=== PATIENT | female | born 1995 | race Hispanic/Latino ===

== ENCOUNTER 2025-09-04 09:21 | Inpatient (IN) | payer OTHER ==
[2025-09-04] MEDS ORDERED: hydrALAZINE 20 MG/ML VIAL SLOW IVP PRN ×2 (09:52→14:24)
[2025-09-04 09:53] VITALS: BMI 25.7
[2025-09-04] MEDS ORDERED: Acetaminophen 500 MG TAB PO PRN (14:24)
[2025-09-04] MEDS ORDERED: Lidocaine 1% (PF) 30 ML VIAL SC PRN (14:24)
[2025-09-04] MEDS ORDERED: Ondansetron PF 4 MG/2 ML Vial IVP PRN ×2 (14:24→20:08)
[2025-09-04] MEDS ORDERED: Tranexamic Acid 1,000 MG/10 ML VIAL IVP PRN (14:24)
[2025-09-04] MEDS ORDERED: Diphenoxylate HCl/Atropine Tablet PO PRN (14:24)
[2025-09-04] MEDS ORDERED: Carboprost 250 MCG/ML AMP IM PRN (14:24)
[2025-09-04] MEDS ORDERED: Methylergonovine 0.2 MG/ML VIAL IM PRN (14:24)
[2025-09-04] MEDS ORDERED: Oxytocin 30 units/NS 500 ML 500 ML IV SCH ×2 (14:30)
[2025-09-04 15:30] LABS: Hematocrit 39.3 % (34.9-44.5); Hemoglobin 13.4 g/dL (12.0-15.5); Mean Corpuscular Hemoglobin 30.9 pg (27.0-33.0); Mean Corpuscular Volume 90.6 fL (81.6-98.3); Platelet Count 207 10x3/uL (150-450); Red Blood Cell (RBC) Count 4.34 10x6/uL (3.90-5.03); White Blood Cell (WBC) Count 13.23 10x3/uL (3.5-10.5)
[2025-09-04 16:01] LABS: Hep B Surf Ag - L&D Non-Reactive S/CO (NonReactive)
[2025-09-04 16:02] LABS: Syphilis Antibody Index 0.07 S/CO (<1.00 Non-Reactive)
[2025-09-04] MEDS: fentaNYL/Ropivacaine Epidural 100 ML ONE (19:44)
[2025-09-04] MEDS ORDERED: diphenhydrAMINE 50 MG/ML VIAL IVP PRN (20:08)
[2025-09-04] MEDS ORDERED: Communication Order-Pharmacy FS SCH (20:15)
[2025-09-04] MEDS ORDERED: fentaNYL 2 mcg/Ropivacaine 0.2% Epidural 100 ML CADD EPIDURAL SCH (20:15)
[2025-09-05 00:32] LABS: Analyzer IN Cardio CS ICU; Critical Notified By: CP.PH; RapidComm Collect By CBN; pH (Cord, venous) 7.307 (7.250-7.350)
[2025-09-05] MEDS ORDERED: Methylergonovine 0.2 MG/ML VIAL IM PRN (00:43)
[2025-09-05] MEDS ORDERED: diphenhydrAMINE 25 MG CAP PO PRN (00:43)
[2025-09-05] MEDS ORDERED: Ondansetron PF 4 MG/2 ML Vial IVP PRN (00:43)
[2025-09-05] MEDS ORDERED: Preparation H Ointment 28 GM TUBE PR PRN (00:43)
[2025-09-05] MEDS ORDERED: Lanolin Ointment 7 GM TUBE TOP PRN (00:43)
[2025-09-05] MEDS ORDERED: hydrALAZINE 20 MG/ML VIAL SLOW IVP PRN (00:43)
[2025-09-05] MEDS ORDERED: Bisacodyl 10 MG SUPP PR PRN (00:43)
[2025-09-05] MEDS ORDERED: Milk Of Magnesia 30 ML UDCUP PO PRN (00:43)
[2025-09-05] MEDS ORDERED: Oxytocin 30 units/NS 500 ML 500 ML IV SCH (00:45)
[2025-09-05] MEDS: Ibuprofen 800 MG TAB PO SCH (05:28)
[2025-09-05] MEDS: Erythromycin Base 0.5% Oint 1 GM TUBE ONE (08:15)
[2025-09-05] MEDS: Ferrous Sulfate 325 MG TAB PO SCH (08:15)
[2025-09-05] MEDS: Varicella virus, LIVE 0.5 ML VIAL SC ONE (08:15)
[2025-09-05] MEDS: Acetaminophen 325 MG TAB PO PRN (17:31)
[2025-09-05] MEDS: Benzocaine-Menthol 82.5 ML CAN TOP PRN (17:32)
[2025-09-07 08:13] VITALS: BP 120/78; TEMP 97.7
== END 2025-09-07 12:25 | disposition home or self-care (01) | DRG 807 ==
LOC: CSHLD/OP 09:21 → CSHLD 15:21 → CSHPP 09-05 02:51
PROVIDERS: ADMIT Family Medicine; ATTEND Family Medicine
PROC: 10D07Z6 Extraction of Products of Conception, Vacuum, Via Natural or Artificial Opening (ICD-10-PCS; principal; 2025-09-05)
PROC: 0KQM0ZZ Repair Perineum Muscle, Open Approach (ICD-10-PCS; principal; 2025-09-05)
PROC: 4A1HXCZ Monitoring of Products of Conception, Cardiac Rate, External Approach (ICD-10-PCS; principal; 2025-09-05)
PROC: 0UQMXZZ Repair Vulva, External Approach (ICD-10-PCS; principal; 2025-09-05)
DX: O48.0 Post-term pregnancy (principal); Z37.0 Single live birth; O76 Abnormality in fetal heart rate and rhythm complicating labor and delivery; O70.1 Second degree perineal laceration during delivery; O71.82 Other specified trauma to perineum and vulva; O69.82X0 Labor and delivery complicated by other cord entanglement, without compression, not applicable or unspecified; Z3A.40 40 weeks gestation of pregnancy; Z79.899 Other long term (current) drug therapy
CPT/HCPCS: 36415; 51702; 82805; 85027; 86780; 86850; 86900; 86901; 87340; 99285